=== PATIENT | female | born 1995 | race Two or more races ===

== ENCOUNTER 2018-06-20 03:22 | Emergency (ER) | payer OTHER ==
--- NOTE | 2018-06-20 05:08 | RADIOLOGY REPORT (SQ) ---
EXAM DESCRIPTION: XR HUMERUS COMPLETED DATE/TME: 06/20/2018 04:21 CLINICAL HISTORY: 23 years, Female, evaluate nexplanon placement COMPARISON: None. NUMBER OF VIEWS: 2 LIMITATIONS: None. FINDINGS: Single 4.5 cm hormone implant guillermo subcutaneous soft tissues of the mid-distal left medial forearm with a 1.0 cm of the skin surface. Moderate fragmented enthesophyte at the lateral aspect of the distal metaphysis of the left humerus. IMPRESSION: No acute findings. Hormone implant.
--- NOTE | 2018-06-20 06:35 | ER Document Report ---
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 Was doing a pole dance when she wrapped her arm around the pole and now has a bruise on the inner portion of her left arm. Patient is concerned because this is where her control implant is. Wants to make sure it is not broken. States that he has been in for 3 years. Denies any other injuries. TRAVEL OUTSIDE OF THE [place] IN LAST 30 DAYS: No - HPI Patient complains to provider of: Injury, Swelling, Left, Arm - Related Data Allergies/Adverse Reactions: tioconazole [From clipkit 1 (tioconazole)] Allergy (Verified 06/20/18 03:28) Past Medical History - General Information source: Patient - Social History Smoking Status: Current Some Day Smoker Chew tobacco use (# tins/day): No Frequency of alcohol use: Social Drug Abuse: Marijuana Family History: Reviewed & Not Pertinent Patient has suicidal ideation: No Patient has homicidal ideation: No - Medical History Medical History: Negative Renal/ Medical History: Denies: Hx Peritoneal Dialysis Past Surgical History: Reports: Hx Orthopedic Surgery - Ankle surgery Review of Systems - Review of Systems Constitutional: denies: Chills, Diaphoresis, Weakness Cardiovascular: denies: Chest pain, Palpitations, Heart racing Respiratory: denies: Cough, Hurts to breathe, Short of breath Musculoskeletal: See HPI, Other - Swelling and pain left upper humerus. denies : Back pain, Joint pain Skin: Other - Using left upper humerus/biceps area Physical Exam - Vital signs Vitals: Temp Pulse Resp BP Pulse Ox 99.4 F 82 18 122/73 95 06/20/18 03:27 06/20/18 03:27 06/20/18 03:27 06/20/18 03:27 06/20/18 03:27 Interpretation: Normal - Respiratory Respiratory status: No respiratory distress Chest status: Nontender Breath sounds: Normal Chest palpation: Normal - Cardiovascular Rhythm: Regular Heart sounds: Normal auscultation Murmur: No - Extremities General upper extremity: Normal inspection, Nontender, Normal color, Normal ROM , Normal temperature General lower extremity: Normal inspection, Nontender, Normal color, Normal ROM , Normal temperature, Normal weight bearing. No: Vasyl's sign - Skin Skin Temperature: Warm Skin Moisture: Dry Skin Color: Other - Small bruise left medial proximal humerus area just distal to the axilla. Nontender to palpation Course - Re-evaluation Re-evalutation: 06/20/18 07:12 X-ray shows implant and arm which appears to be intact. I have advised her that I am not a implant expert in that if she would like to have this removed she should speak with the [facility] or medical provider that is skilled in the removal of these devices. Advised her to continue to observe her arm and if any worsening symptoms return please feel free to return for repeat evaluation. I did provide her with a copy of her x-ray. - Vital Signs Vital signs: Temp Pulse Resp BP Pulse Ox 99.4 F 82 18 122/73 95 06/20/18 03:27 06/20/18 03:27 06/20/18 03:27 06/20/18 03:27 06/20/18 03:27 Discharge - Discharge Clinical Impression: Contusion of left arm Qualifiers: Encounter type: initial encounter Qualified Code(s): S40.022A - Contusion of left upper arm, initial encounter Condition: Good Disposition: HOME, SELF-CARE Instructions: Contusion ([facility]) Additional Instructions: The implant appears to be intact. Please call [facility] [facility] to schedule an appointment to have this reassessed if there is concerns. Referrals: ANDREW BELL MD [ACTIVE STAFF] - Follow up as needed
[2018-06-20 07:13] VITALS: BP 105/71
== END 2018-06-20 06:45 | disposition home or self-care (01) ==
LOC: ER 03:22
DX: S40.022A Contusion of left upper arm, initial encounter (principal); X58.XXXA Exposure to other specified factors, initial encounter; Y93.41 Activity, dancing; Y99.0 Civilian activity done for income or pay; F17.200 Nicotine dependence, unspecified, uncomplicated; F12.10 Cannabis abuse, uncomplicated; Z97.5 Presence of (intrauterine) contraceptive device; Z88.3 Allergy status to other anti-infective agents
CPT/HCPCS: 99283

== ENCOUNTER 2019-05-10 11:12 | Emergency (ER) | payer SELFPAY ==
[2019-05-10 11:23] VITALS: BP 121/62
[2019-05-10] MEDS ORDERED: HYDROCODONE/ACETAMINOPHEN 5-325 MG TABLET PO ONE (11:34)
--- NOTE | 2019-05-10 11:36 | ER Document Report ---
ED Medical Screen (RME) - General Chief Complaint: Abscess Stated Complaint: VAGINAL PAIN Time Seen by Provider: 05/10/19 11:34 Mode of Arrival: Ambulatory Information source: Patient Notes: 24-year-old female presented to ED for complaint of a right Bartholin cyst. She states 2 weeks ago started is a very small almost pimple size. She states in the last 24 hours it is ballooned up to now it is very large and very painful. She states she went to the urgent care and they were not able to help her and sent her to the emergency room. Patient is alert oriented respirations regular and unlabored speaking in full sentences and is able to walk with even steady gait. I have greeted and performed a rapid initial assessment of this patient. A comprehensive ED assessment and evaluation of the patient, analysis of test results and completion of medical decision making process will be conducted by an additional ED providers. Dictation of this chart was performed using voice recognition software; therefore, there may be some unintended grammatical errors. TRAVEL OUTSIDE OF THE [place] IN LAST 30 DAYS: No - Related Data Allergies/Adverse Reactions: tioconazole [From Monistat 1 (tioconazole)] Allergy (Verified 05/10/19 11:15) Past Medical History Renal/ Medical History: Denies: Hx Peritoneal Dialysis Past Surgical History: Reports: Hx Orthopedic Surgery - Ankle surgery Physical Exam - Vital signs Vitals: Temp Pulse Resp BP Pulse Ox 98.6 F 87 16 121/62 99 05/10/19 11:21 05/10/19 11:21 05/10/19 11:21 05/10/19 11:21 05/10/19 11:21 Course - Vital Signs Vital signs: Temp Pulse Resp BP Pulse Ox 98.6 F 87 16 121/62 99 05/10/19 11:21 05/10/19 11:21 05/10/19 11:21 05/10/19 11:21 05/10/19 11:21
--- NOTE | 2019-05-10 14:57 | ER Document Report ---
ED General - General Chief Complaint: Abscess Stated Complaint: VAGINAL PAIN Time Seen by Provider: 05/10/19 11:34 Mode of Arrival: Ambulatory Information source: Patient TRAVEL OUTSIDE OF THE [place] IN LAST 30 DAYS: No - HPI Patient complains to provider of: Vaginal abscess Onset: Other - 2 weeks Onset/Duration: Sudden Quality of pain: Sharp Severity: Severe Pain Level: 5 Associated symptoms: Chills, Fever. denies: Nausea, Vomiting Exacerbated by: Denies Relieved by: Denies Similar symptoms previously: No Recently seen / treated by doctor: No Notes: 24-year-old female coming in today with Bartholin's abscess. Symptoms started couple weeks ago. Patient initially said the area went away after she popped a small bump. Then a week later it came back. She popped it again, then 36 hours after that it had swollen up quite a bit. Went into see the urgent care clinic today. She was sent here for further evaluation and treatment. While waiting she had received pain medication. She went to the bathroom and was able to coax it into draining and now it is almost fully drained. Patient is afebrile. No diabetes or immune compromise. - Related Data Allergies/Adverse Reactions: tioconazole [From Monistat 1 (tioconazole)] Allergy (Verified 05/10/19 11:15) Past Medical History - General Information source: Patient - Social History Smoking Status: Current Every Day Smoker Chew tobacco use (# tins/day): No Frequency of alcohol use: Social Drug Abuse: None Family History: Reviewed & Not Pertinent Patient has suicidal ideation: No Patient has homicidal ideation: No Renal/ Medical History: Denies: Hx Peritoneal Dialysis Past Surgical History: Reports: Hx Orthopedic Surgery - Ankle surgery Review of Systems - Review of Systems Notes: Constitutional: No fevers. No chills. EENT: No eye redness. No eye pain. No ear pain. No sore throat. Cardiovascular: No chest pain. No palpitations. Respiratory: No cough. No shortness of breath. No respiratory distress. Gastrointestinal: No abdominal pain. No nausea, vomiting, or diarrhea. Genitourinary: Positive Bartholin's abscess right side Musculoskeletal: Atraumatic. No swelling. No deformities. Skin: No rash or lesions. Lymphatic: No swollen lymph nodes. Neurologic: No headache. No syncope. Psychiatric: No suicidal or homicidal ideation. Physical Exam - Vital signs Vitals: Temp Pulse Resp BP Pulse Ox 98.6 F 87 16 121/62 99 05/10/19 11:21 05/10/19 11:05/10/19 11:05/10/19 11:05/10/19 11:21 - Notes Notes: General: Well-developed, well-nourished. In no acute distress. Non-toxic appearing. Cardiac: Well-perfused. Regular rate and rhythm. No murmurs, rubs, or gallops. Pulmonary: No respiratory distress. No cyanosis. Bilateral lung fiels are clear to auscultation. Abdominal: Non-distended. Non-rigid. Bowels sounds are present in all four quadrants. No guarding or rebound. HEENT: Head is atraumatic. Conjunctivae not reddened. No tearing. PERRL. EOMI. Orbits atraumatic. No periorbital swelling or erythema. Oropharynx is without erythema, swelling, or exudates. Neck: Supple. No adenopathy. No meningismus. Dermatologic: Warm with good turgor. No rash. Atraumatic. Chest: Atraumatic. No chest wall tenderness to palpation. Musculoskeletal: Moves all extremities well. No range of motion deficits. no muscular or joint tenderness. No paraspinal muscle tenderness. no midline spinal tenderness or step-off. Genitourinary: Chaperoned by Danae. Small amount of swelling at the 7 o'clock position of the vaginal introitus. When palpated, there is a small amount of mucopurulent drainage from just inside the right side of the vagina. There are no external vaginal lesions. Neurologic: No gross neurologic deficits. Psychiatric: Normal mood. Course - Re-evaluation Re-evalutation: 05/10/19 14:54 The abscess is apparently drained itself. We discussed doing an incision and drainage and patient prefers to try empiric antibiotic therapy and pain medication and hot compress to see how it does before getting it cut on. Everybody is amenable to this plan of action. Will discharge home with a very short course of [place] and doxycycline - Vital Signs Vital signs: Temp Pulse Resp BP Pulse Ox 98.6 F 87 16 121/62 99 05/10/19 11:21 05/10/19 11:05/10/19 11:21 05/10/19 11:21 05/10/19 11:21 Discharge - Discharge Clinical Impression: Bartholin's gland abscess Condition: Good Disposition: HOME, SELF-CARE Instructions: Bartholin Gland Cyst or Abscess ([facility]) Additional Instructions: If this abscess or cyst recurs, it may need to be surgically permanently removed. In the emergency department, we will cut it open and drain it if it needs it, however we do not surgically remove the offending cyst. This procedure can be performed by a clinical services director in the office as needed. For now, we will treat your infection with antibiotics, encourage you to use hot compresses to the area to help it continue to drain, and pain medication as needed for severe pain. In the event that the abscess fills back up (which it may) you are always welcome to return to the emergency department to have it drained. However, it may be worthwhile to see the clinical services director to see about a more permanent fix for the problem. Prescriptions: Hydrocodone/Acetaminophen [[place] 5-325 mg Tablet] 1 tab PO Q6HP PRN #10 tablet PRN Reason: Doxycycline Hyclate 100 mg PO BID #20 capsule Referrals: JENNIFER COMBS MD [ACTIVE STAFF] - Follow up as needed
== END 2019-05-10 15:30 | disposition home or self-care (01) ==
LOC: ER 11:12
DX: N75.1 Abscess of Bartholin's gland (principal); R10.2 Pelvic and perineal pain; F17.200 Nicotine dependence, unspecified, uncomplicated
CPT/HCPCS: 99282

== ENCOUNTER 2019-05-22 21:34 | Emergency (ER) | payer SELFPAY ==
[2019-05-22] MEDS ORDERED: NORMAL SALINE 1000 ML 1,000 ML IV ONE ×2 (21:50→22:03)
--- NOTE | 2019-05-22 21:51 | ER Document Report ---
ED Medical Screen (RME) - General Chief Complaint: Vaginal Bleeding Stated Complaint: VAGINAL BLEEDING Time Seen by Provider: 05/22/19 21:49 TRAVEL OUTSIDE OF THE [place] IN LAST 30 DAYS: No - HPI Notes: 05/22/19 22:03 24-year-old female to the emergency department with complaints of heavy vaginal bleeding that began 3 days ago. She states that she is about 9 weeks and has been passing large golf ball size clots. She is unsure of how much she is been bleeding but states that today she seen at least a couple of blood if not more. She admits that she feels nauseated and lightheaded. She has not passed out. She states that she has a history of a clotting disorder where she makes more clots however her [employer] has not placed her on any blood thinners. She admits to pelvic pain. She denies fevers, chills, chest pain, shortness of breath. She has not been vomiting. She has had a confirmed IUP on ultrasound with this . Patient has had a brief medical screening exam with myself. She will be placed on the main side from inside provider to evaluate and continue her care. 2 L of fluids are ordered, 8 mg of Zofran, labs to include type and screen. Chart generated by voice recognition technology. - Related Data Allergies/Adverse Reactions: tioconazole [From Monistat 1 (tioconazole)] Allergy (Verified 05/10/19 11:15) Past Medical History - General Information source: Patient Renal/ Medical History: Denies: Hx Peritoneal Dialysis Past Surgical History: Reports: Hx Orthopedic Surgery - Ankle surgery Physical Exam - General General appearance: Alert, Other - Patient appears pale, slightly diaphoretic. In distress: Moderate - Abdominal Inspection: Normal Distension: No distension Bowel sounds: Normal Tenderness: Tender - Al tenderness to palpation over the pelvic abdomen.
[2019-05-22] MEDS ORDERED: ONDANSETRON HCL INJ/PF 4 MG/2 ML SDV IV ONE ×2 (22:03→22:57)
[2019-05-22 22:19] LABS: ABSOLUTE LYMPHOCYTES (AUTO) 3.4 10^3/uL (0.5-4.7); ABSOLUTE MONOCYTES (AUTO) 0.6 10^3/uL (0.1-1.4); ABSOLUTE NEUT (AUTO) 10.6 10^3/uL (1.7-8.2); BASOPHILS % (AUTO) 0.3 % (0-2); EOSINOPHILS % (AUTO) 0.2 % (0-6); HEMATOCRIT 37.2 % (36.0-47.0); HEMOGLOBIN 12.9 g/dL (12.0-15.5); LYMPHOCYTES % (AUTO) 23.4 % (13-45); MEAN CORPUSCULAR HEMOGLOBIN 31.3 pg (27.0-33.4); MEAN CORPUSCULAR HGB CONC 34.7 g/dL (32.0-36.0); MEAN CORPUSCULAR VOLUME 90 fl (80-97); MONOCYTES % (AUTO) 4.2 % (3-13); PLATELET COUNT 387 10^3/uL (150-450); RED BLOOD COUNT 4.12 10^6/uL (3.72-5.28); RED CELL DISTRIBUTION WIDTH 12.5 % (11.5-14.0); SEGMENTED NEUTROPHILS % (AUTO) 71.9 % (42-78); TOTAL CELLS COUNTED % (AUTO) 100 %; WHITE BLOOD COUNT 14.7 10^3/uL (4.0-10.5)
[2019-05-22 22:37] LABS: ALANINE AMINOTRANSFERASE 16 U/L (9-52); ALBUMIN 4.6 g/dL (3.5-5.0); ALKALINE PHOSPHATASE 51 U/L (38-126); ANION GAP 11 (5-19); ASPARTATE AMINO TRANSFERASE 22 U/L (14-36); BILIRUBIN,DIRECT 0.2 mg/dL (0.0-0.4); BILIRUBIN,TOTAL 1.3 mg/dL (0.2-1.3); BLOOD UREA NITROGEN 7 mg/dL (7-20); CALCIUM 9.7 mg/dL (8.4-10.2); CARBON DIOXIDE 20 mmol/L (22-30); CHLORIDE 104 mmol/L (98-107); GLUCOSE 112 mg/dL (75-110); POTASSIUM 3.3 mmol/L (3.6-5.0); SODIUM 135.4 mmol/L (137-145); TOTAL PROTEIN 7.3 g/dL (6.3-8.2)
[2019-05-22] MEDS ORDERED: MORPHINE SULFATE 10 MG/ML INJ IV ONE (22:57)
--- NOTE | 2019-05-22 23:34 | ER Document Report ---
Entered by KEVIN MATHEW SCRIBE 05/22/19 5220 Acting as scribe for:KHURRAM NELSON MD ED General - General Chief Complaint: Vaginal Bleeding Stated Complaint: VAGINAL BLEEDING Time Seen by Provider: 05/22/19 21:49 Notes: Patient is a 24-year-old female that is currently 9 weeks presenting to the emergency department with vaginal bleeding. Patient states that she had vaginal bleeding that began 1 week ago. Patient states clots that she was having stopped the same day, but she began having light brown spots intermittently. Patient states that her vaginal bleeding, light brown spotting got constant today. Patient states that about 8:00 PM her vaginal bleeding, clotting, cramps became constant. Patient states that she passed a clot when she went to the bathroom here in the emergency department. Patient states that her last menstrual period was March 19, 2019. TRAVEL OUTSIDE OF THE [place] IN LAST 30 DAYS: No - Related Data Allergies/Adverse Reactions: tioconazole [From Monistat 1 (tioconazole)] Allergy (Verified 05/10/19 11:15) Past Medical History - General Information source: Patient - Social History Smoking Status: Current Every Day Smoker Cigarette use (# per day): Yes Chew tobacco use (# tins/day): No Frequency of alcohol use: None Drug Abuse: None Family History: Reviewed & Not Pertinent Past Surgical History: Reports: Hx Orthopedic Surgery - Ankle surgery, Other Review of Systems - Review of Systems Constitutional: No symptoms reported EENT: No symptoms reported Cardiovascular: No symptoms reported Respiratory: No symptoms reported Gastrointestinal: See HPI, Abdominal pain Genitourinary: No symptoms reported Female Genitourinary: See HPI, Last menstrual period - March 19, - 9 weeks, Vaginal bleeding Musculoskeletal: No symptoms reported Skin: No symptoms reported Hematologic/Lymphatic: No symptoms reported Neurological/Psychological: No symptoms reported -: Yes All other systems reviewed and negative Physical Exam - Vital signs Vitals: Resp Pulse Ox 28 H 100 05/22/19 21:57 05/22/19 21:57 - Notes Notes: Physical Exam: General: Alert, crying, anxious. Laying in Trendelenburg. HEENT: Normocephalic. Atraumatic. PERRL. Extraocular movements intact. Oropharynx clear. Neck: Supple. Non-tender. Respiratory: No respiratory distress. Clear and equal breath sounds bilaterally. Cardiovascular: Regular rate and rhythm. Abdominal: Suprapubic tenderness to palpation. Cramping. No distension. Normal Bowel Sounds. Back: Non-tender. No deformity or step off. Extremities: Moves all four extremities. Upper extremities: Normal inspection. Normal ROM. Lower extremities: Normal inspection. No edema. Normal ROM. Neurological: Normal cognition. AAOx4. Normal speech. Psychological: Normal affect. Normal Mood. Skin: Warm. Dry. Normal color. Course - Vital Signs Vital signs: Temp Pulse Resp BP Pulse Ox 22 H 122/75 100 05/23/19 00:22 05/23/19 00:22 05/23/19 00:22 - Laboratory Result Diagrams: 05/22/19 22:02 05/22/19 22:02 Laboratory results interpreted by me: 05/22/19 05/22/19 22:02 22:02 WBC 14.7 H Absolute Neutrophils 10.6 H Sodium 135.4 L Potassium 3.3 L Carbon Dioxide 20 L Creatinine 0.47 L Glucose 112 H Beta HCG, Quant 21697.00 H - Diagnostic Test Radiology reviewed: Reports reviewed - Ultrasound shows fluid in the lower uterine segment with no intrauterine . Discharge - Discharge Clinical Impression: Miscarriage Condition: Stable Disposition: HOME, SELF-CARE Additional Instructions: Miscarriage You have had a miscarriage (medically called a "spontaneous "). The miscarriage occurred because the fetus did not develop normally. There is nothing you did to cause it, and nothing you could have done to prevent it. About one in four ends in miscarriage. You should rest in bed for two or three days. As there is some risk of infection of the uterus, you should not have intercourse for one week (or until okayed by your physician). You might not have a period for six to eight weeks. You should not become again for at least three months -- the uterus requires time to get back to normal. Call the doctor or return for re-examination if there is heavy or persistent vaginal bleeding, fever, foul discharge, continued cramping pains, or abdominal pain. Take ibuprofen for pain and cramps. Drink plenty of fluids. Call [facility] in the morning to schedule a follow-up appointment. RETURN TO THE EMERGENCY ROOM IF ANY NEW OR WORSENING SYMPTOMS. Forms: Return to Work Scribe Attestation: 05/23/19 01:14 I personally performed the services described in the documentation, reviewed and edited the documentation which was dictated to the scribe in my presence, and it accurately records my words and actions. I personally performed the services described in the documentation, reviewed and edited the documentation which was dictated to the scribe in my presence, and it accurately records my words and actions.
--- NOTE | 2019-05-23 00:22 | RADIOLOGY REPORT (SQ) ---
CLINICAL HISTORY: Heavy bleeding, hypotensive, severe cramps COMPARISON: None. TECHNIQUE: US TRANSVAGINAL on 05/22/2019 11:01 PM CDT FINDINGS: Uterus measures 9.1 cm. Cervix measures 1.2 cm. There is fluid in the lower uterine segment. There is no IUP. Left ovary is not seen. Right ovary measures 2.4 x 2.2 x 2.9 cm with patent flow. IMPRESSION: Fluid within the lower uterine segment. No evidence of an IUP.
[2019-05-23] MEDS ORDERED: HYDROCODONE/ACETAMINOPHEN 5-325 MG (6 TAB/ER DISP) PO PRN (01:19)
[2019-05-23] MEDS ORDERED: KETOROLAC TROMETHAMINE INJ/PF 30 MG/1 ML SDV IV ONE (01:19)
[2019-05-23 01:24] VITALS: BP 135/92
== END 2019-05-23 01:41 | disposition home or self-care (01) ==
LOC: ER 21:34
DX: O03.9 Complete or unspecified spontaneous abortion without complication (principal); F17.210 Nicotine dependence, cigarettes, uncomplicated
CPT/HCPCS: 99284; 96361; 96374; 96375; 86900; 86901; 36415; 86850; 84702; 85025; 80053; 76817; J1885; J2270; J2405; J7030

== ENCOUNTER 2019-09-14 19:25 | Emergency (ER) | payer OTHER ==
[2019-09-14] MEDS ORDERED: IBUPROFEN 600 MG TABLET PO ONE (19:46)
--- NOTE | 2019-09-14 19:49 | ER Document Report ---
ED Medical Screen (RME) - General Chief Complaint: Hand Pain Stated Complaint: RIGHT HAND PAIN Time Seen by Provider: 09/14/19 19:42 Information source: Patient Notes: 24-year-old female presented to ED for complaint of pain in the right hand. She states just before coming to the ED she punched a mirror because she was so mad. She states her pain is 4/5 throbbing and sharp. She states she does vape drinks weekly has a history of a fractured ankle with surgery and the blood dyscrasia MTHR patient states last menstrual period was 08/21/2019. I have greeted and performed a rapid initial assessment of this patient. A comprehensive ED assessment and evaluation of the patient, analysis of test results and completion of medical decision making process will be conducted by an additional ED providers. TRAVEL OUTSIDE OF THE [place] IN LAST 30 DAYS: No - Related Data Allergies/Adverse Reactions: tioconazole [From Monistat 1 (tioconazole)] Allergy (Verified 05/10/19 11:15) Past Medical History Renal/ Medical History: Denies: Hx Peritoneal Dialysis Past Surgical History: Reports: Hx Orthopedic Surgery - Ankle surgery, Other Physical Exam - Vital signs Vitals: Temp Pulse Resp BP Pulse Ox 97.5 F 70 18 103/63 100 09/14/19 19:32 09/14/19 19:32 09/14/19 19:32 09/14/19 19:32 09/14/19 19:32 Course - Vital Signs Vital signs: Temp Pulse Resp BP Pulse Ox 97.5 F 70 18 103/63 100 09/14/19 19:32 09/14/19 19:32 09/14/19 19:32 09/14/19 19:32 09/14/19 19:32
[2019-09-14] MEDS ORDERED: LIDOCAINE 1% INJ-PF (10 MG/ML) 30 ML SDV INJ ONE (20:14)
--- NOTE | 2019-09-14 20:18 | ER Document Report ---
HPI - HPI Pain Level: 4 - CONSTITUTIONAL Constitutional: DENIES: Fever, Chills - REPRODUCTIVE Reproductive: REPORTS: : - MUSCULOSKELETAL Musculoskeletal: REPORTS: Extremity pain <SWATHI KENDALL - Last Filed: 09/15/19 01:14 EDT> <MARIA DEL CARMEN LAYTON - Last Filed: 09/15/19 01:22 EST> - HPI Time Seen by Provider: 09/14/19 19:42 Past Medical History - General Information source: Patient - Social History Smoking Status: Current Every Day Smoker Chew tobacco use (# tins/day): No Frequency of alcohol use: Occasional Drug Abuse: None Occupation: [employer] Family History: Reviewed & Not Pertinent Patient has suicidal ideation: No Patient has homicidal ideation: No Renal/ Medical History: Denies: Hx Peritoneal Dialysis Past Surgical History: Reports: Hx Orthopedic Surgery - Ankle surgery, Other <SWATHI KENDALL - Last Filed: 09/15/19 01:14 EDT> Vertical Provider Document - CONSTITUTIONAL Agree With Documented VS: Yes Exam Limitations: No Limitations General Appearance: WD/WN, No Apparent Distress - INFECTION CONTROL TRAVEL OUTSIDE OF THE [place] IN LAST 30 DAYS: No - HEENT HEENT: Atraumatic, Normocephalic - NECK Neck: Normal Inspection - RESPIRATORY Respiratory: No Respiratory Distress - CARDIOVASCULAR Pulses: Normal: Radial - MUSCULOSKELETAL/EXTREMETIES Musculoskeletal/Extremeties: MAEW, Tender - Right hand tenderness over fifth metacarpal with positive swelling and deformity, Edema, Eccymosis - NEURO Level of Consciousness: Awake, Alert, Appropriate - DERM Integumentary: Warm, Dry, No Rash <SWATHI KENDALL - Last Filed: 09/15/19 01:14 EDT> Course - Re-evaluation Re-evalutation: 09/14/19 20:30 Hematoma block performed, patient placed in finger traps. Patient felt bone starting to shift while in the traction. 09/14/19 22:00 Patient removed from finger traps, repeat x-ray performed. 09/14/19 23:00 Dr. Layton recommends repeating block and she will attempt to reduce the fracture. 09/15/19 00:12 After patient was given IV pain medication, Dr. Layton to bedside for hematoma block. Bupivacaine was used at this time. 09/15/19 00:30 Dr Layton to bedside for fracture reduction. Joint appears in better alignment. Patient tolerated well. 09/15/19 01:14 EDT Patient with improvement of displacement of her right fifth metacarpal fracture. Will immobilize and refer to orthopedics for further management. - Vital Signs Vital signs: Temp Pulse Resp BP Pulse Ox 97.5 F 70 18 103/63 100 09/14/19 19:32 09/14/19 19:32 09/14/19 19:32 09/14/19 19:32 09/14/19 19:32 - Diagnostic Test Radiology reviewed: Image reviewed, Reports reviewed <SWATHI KENDALL - Last Filed: 09/15/19 01:14 EDT> - Vital Signs Vital signs: Temp Pulse Resp BP Pulse Ox 98.6 F 80 19 105/70 98 09/15/19 01:48 EDT 09/15/19 01:48 EDT 09/15/19 01:48 EDT 09/15/19 01:48 EDT 09/15/19 01:48 EDT <MARIA DEL CARMEN LAYTON - Last Filed: 09/15/19 01:22 EST> Procedures - Joint Reduction/Fracture Care Right Head 5th digit Time completed: 12:45 Consent obtained: Yes Conscious sedation: No Pre-procedure NV exam: Yes Fracture: Closed Post-procedure NV exam: Yes Reduction attempts: 1 Notes: 09/15/19 01:21 EST Consent was signed and placed in the chart. The area was thoroughly cleansed. Hematoma block was performed with proximal he 5 and half cc of 0.5% bupivacaine. Once adequate analgesia was achieved, using traction and manipulation, the fracture was reduced. There was some improved alignment. Patient was placed in a ulnar gutter splint. She tolerated the procedure well without difficulty. <MARIA DEL CARMEN LAYTON - Last Filed: 09/15/19 01:22 EST> Discharge <SWATHI KENDALL - Last Filed: 09/15/19 01:14 EDT> <MARIA DEL CARMEN LAYTON - Last Filed: 09/15/19 01:22 EST> - Discharge Clinical Impression: Fracture of fifth metacarpal bone Qualifiers: Encounter type: initial encounter Fracture type: closed Metacarpal location: aft Fracture alignment: displaced Laterality: right Qualified Code(s): S62.326A - Displaced fracture of shaft of fifth metacarpal bone, right hand, initial encounter for closed fracture Condition: Stable Disposition: HOME, SELF-CARE Instructions: Fractured Fifth Metacarpal ([facility]), Ice & Elevation ([facility]), Oral Narcotic Medication ([facility]), Splint Precautions ([facility]) Additional Instructions: Return immediately for any new or worsening symptoms Followup with your primary care provider, call tomorrow to make a followup appointment Follow-up with orthopedics for further management, call Monday for an appointment. Prescriptions: Hydrocodone/Acetaminophen [[place] 5-325 mg Tablet] 1 tab PO Q6 PRN #15 tablet PRN Reason: Forms: Smoking Cessation Education, Return to Work Referrals: [facility] [Provider Group] - Follow up as needed BRIDGETT COVARRUBIAS JR, [ACTIVE PROVISIONAL STAFF] - Follow up as needed MADISON WHALEN MD [ACTIVE PROVISIONAL STAFF] - 09/16/19
--- NOTE | 2019-09-14 20:42 | RADIOLOGY REPORT (SQ) ---
EXAM DESCRIPTION: XR HAND 3 OR MORE VIEWS COMPLETED DATE/TME: 09/14/2019 19:42 CLINICAL HISTORY: 24 years, Female, punched a mirror, pain and swelling COMPARISON: EXAM DESCRIPTION: CLINICAL HISTORY: punched a mirror, pain and swelling COMPARISON: None FINDINGS: 3 view(s) submitted. There is a boxer's fracture with moderate angulation involving the fifth metacarpal. No other fracture or dislocation. IMPRESSION: Fifth metacarpal fracture.
[2019-09-14] MEDS ORDERED: BUPIVACAINE HCL 0.5 % INJ/PF 30 ML SDV INJ ONE (22:58)
[2019-09-14] MEDS ORDERED: FENTANYL CITRATE INJ/PF 100 MCG/2 ML AMPUL IV ONE (23:10)
--- NOTE | 2019-09-14 23:17 | RADIOLOGY REPORT (SQ) ---
EXAM DESCRIPTION: XR HAND 3 OR MORE VIEWS COMPLETED DATE/TME: 09/14/2019 22:15 CLINICAL HISTORY: 24 years, Female, post reduction COMPARISON: Prior right hand from today's date NUMBER OF VIEWS: 3 TECHNIQUE: 3 view right hand LIMITATIONS: None. FINDINGS: Little change in the appearance of the comminuted, displaced and angulated boxer's fracture. No new fractures. IMPRESSION: Little interval change copyright 2010 [employer]- All Rights Reserved
[2019-09-15] MEDS ORDERED: FENTANYL CITRATE INJ/PF 100 MCG/2 ML AMPUL ONE (00:10)
[2019-09-15] MEDS ORDERED: FENTANYL CITRATE INJ/PF 100 MCG/2 ML AMPUL IV ONE (00:11)
--- NOTE | 2019-09-15 01:38 | RADIOLOGY REPORT (SQ) ---
EXAM DESCRIPTION: XR HAND 3 OR MORE VIEWS COMPLETED DATE/TME: 09/15/2019 00:30 CLINICAL HISTORY: 24 years, Female, post reduction COMPARISON: None. FINDINGS: 3 views of the right hand. Acute comminuted angulated fracture of the distal right fifth metacarpal. No other fractures identified. Soft tissue edema. No radiopaque foreign body. IMPRESSION: 1. Acute comminuted angulated fracture of the distal right fifth metacarpal. copyright 2010 [employer]- All Rights Reserved
[2019-09-15 01:49] VITALS: BP 105/70
== END 2019-09-15 01:49 | disposition home or self-care (01) ==
LOC: ER 19:25
DX: S62.326A Displaced fracture of shaft of fifth metacarpal bone, right hand, initial encounter for closed fracture (principal); M79.641 Pain in right hand; M79.89 Other specified soft tissue disorders; W22.09XA Striking against other stationary object, initial encounter; F17.200 Nicotine dependence, unspecified, uncomplicated
CPT/HCPCS: 73130 ×2; 26605; J3490; J3010 ×2